=== PATIENT | female | born 1985 | race Caucasian/White ===

== ENCOUNTER 2021-06-19 07:59 | Emergency (ER) | payer BC, OTHER ==
[2021-06-19 08:30] VITALS: TEMP 97.5; BMI 16.7
[2021-06-19] MEDS ORDERED: SODIUM CHLORIDE 1,000 ML IV STA (09:52)
[2021-06-19] MEDS ORDERED: METOCLOPRAMIDE HCL INJECTION 10 MG/2 ML VIAL IVPB ONE (09:52)
[2021-06-19] MEDS ORDERED: METOCLOPRAMIDE HCL INJECTION 10 MG/2 ML VIAL ONE (10:00)
[2021-06-19 12:08] LABS: BASO % 0.6 % (0-2.0); EOS % 1.2 % (0-4.5); HEMATOCRIT 41.6 % (32.4-45.2); HEMOGLOBIN 14.4 GM/dL (10.7-15.3); LYMPH % 30.1 % (8-40); MCH 30.2 pg (25.7-33.7); MCHC 34.7 g/dl (32.0-36.0); MEAN PLT VOLUME 8.7 fl (7.5-11.1); MONO % 5.8 % (3.8-10.2); NEUT % 62.3 % (42.8-82.8); PLATELET COUNT 313 10^3/uL (134-434); RBC 4.78 M/mm3 (3.60-5.2); RDW 12.7 % (11.6-15.6); WHITE BLOOD COUNT 5.7 K/mm3 (4.0-10.0)
[2021-06-19 12:15] LABS: INR 1.21 (0.83-1.09)
[2021-06-19 12:47] LABS: ALBUMIN 4.3 g/dl (3.4-5.0); BLOOD UREA NITROGEN 9.3 mg/dL (7-18); CALCIUM 9.4 mg/dL (8.5-10.1)
[2021-06-19 12:50] LABS: CREATININE 0.8 mg/dL (0.55-1.3)
[2021-06-19 12:52] LABS: BILIRUBIN,TOTAL 0.8 mg/dL (0.2-1); TOT PROT 7.6 g/dl (6.4-8.2)
[2021-06-19 13:11] VITALS: BP 118/76; PULSE 58
== END 2021-06-19 15:45 | disposition left against medical advice (07) ==
LOC: JER 07:59
PROC: 3E033NZ Introduction of Analgesics, Hypnotics, Sedatives into Peripheral Vein, Percutaneous Approach (ICD-10-PCS; principal; 2021-06-19)
PROC: 3E033GC Introduction of Other Therapeutic Substance into Peripheral Vein, Percutaneous Approach (ICD-10-PCS; 2021-06-19)
PROC: 3E0337Z Introduction of Electrolytic and Water Balance Substance into Peripheral Vein, Percutaneous Approach (ICD-10-PCS; 2021-06-19)
DX: S06.0X1A Concussion with loss of consciousness of 30 minutes or less, initial encounter (principal); R51.9 Headache, unspecified
CPT/HCPCS: 36415; 70450-TC; 70496-TC; 70498-TC; 80053; 84703; 85025; 85610; 93005; 93010; 99285-25; C9803; Q9967; U0003; U0005

== ENCOUNTER 2023-06-28 08:40 | Emergency (ER) | payer OTHER ==
[2023-06-28 08:46] VITALS: BP 113/71; PULSE 72; RESP 20; TEMP 98; BMI 20.9
[2023-06-28] MEDS ORDERED: LIDOCAINE 4% PATCH TP ONE ×2 (09:28→09:45)
[2023-06-28] MEDS ORDERED: ACETAMINOPHEN 500 MG TABLET (FP) PO ONE (09:29)
[2023-06-28] MEDS ORDERED: ACETAMINOPHEN 325 MG TABLET (FP) ONE (09:45)
[2023-06-28 09:59] LABS: URINE APPEARANCE CLEAR; URINE BILIRUBIN NEGATIVE (NEGATIVE); URINE COLOR YELLOW; URINE GLUCOSE (UA) NEGATIVE (NEGATIVE); URINE KETONE NEGATIVE (NEGATIVE); URINE LEUK ESTERASE NEGATIVE (NEGATIVE); URINE NITRITE NEGATIVE (NEGATIVE); URINE PROTEIN NEGATIVE (NEGATIVE); URINE UROBILINOGEN 0.2 mg/dL (0.2-1.0)
[2023-06-28 10:01] LABS: HCG,QUALITATIVE URINE Negative
[2023-06-28] MEDS ORDERED: KETOROLAC TROMETHAMINE 15 MG/ML VIAL IM ONE (10:22)
[2023-06-28] MEDS ORDERED: KETOROLAC TROMETHAMINE 15 MG/ML VIAL ONE (10:32)
[2023-06-28] MEDS ORDERED: LIDOCAINE PATCH REMOVAL MC ONE (22:00)
== END 2023-06-28 12:33 | disposition home or self-care (01) ==
LOC: JERFT 08:40
PROC: 3E0233Z Introduction of Anti-inflammatory into Muscle, Percutaneous Approach (ICD-10-PCS; principal; 2023-06-28)
DX: S20.221A Contusion of right back wall of thorax, initial encounter (principal); R07.81 Pleurodynia; R06.02 Shortness of breath; W19.XXXA Unspecified fall, initial encounter
CPT/HCPCS: 71046-TC-FY; 71101-TC-RT-FY; 71250-TC; 81003; 84703; 96372; 99285-25